=== PATIENT | female | born 1995 | race Caucasian/White ===

== ENCOUNTER 2017-06-18 15:31 | Emergency (ER) | payer BC, OTHER ==
[~2017-06-18] VITALS: Ht 165.1 cm; Wt 51.3 kg
[2017-06-18] MEDS ORDERED: SINGULAIR (15:59)
[2017-06-18] MEDS ORDERED: MOME13HF2 INH (15:59)
[2017-06-18] MEDS ORDERED: ESCI10TA PO (16:00)
[2017-06-18 16:21] LABS: *URINE HCG, QUAL NEGATIVE (NEGATIVE)
[2017-06-18 16:22] LABS: *BILIRUBIN,URIN NEGATIVE (NEGATIVE); *BLOOD, URINE NEGATIVE (NEGATIVE); *CLARITY,URINE CLEAR (CLEAR); *COLOR,URINE YELLOW (YELLOW); *KETONES,URINE NEGATIVE (NEGATIVE); *PROTEIN,URINE NEGATIVE (NEGATIVE); *UROBILINOGEN,URINE 0.2 E.U./dl (NORMAL); LEUKOCYTE ESTERASE ,URINE TRACE (NEGATIVE); NITRITE, URINE NEGATIVE (NEGATIVE); PH,URINE 7.5 (5.0-8.0); UGLUCOSE NEGATIVE (NEGATIVE)
[2017-06-18 16:28] LABS: BACTERIA,URINE FEW /HPF (NONE SEEN); RBC,URINE 0-3 /HPF (0-3); SQUAMOUS EPITHELIAL CELL,UR FEW /HPF (NONE SEEN)
--- NOTE | 2017-06-18 17:19 | NUR ---
Patient discharged to home in stable conditon. Written and verbal after care instructions given. Patient verbalizes understanding of instructions.pt walks in steady gait.
== END 2017-06-18 16:54 | disposition home or self-care (01) ==
LOC: ER 15:33
DX: N83.202 Unspecified ovarian cyst, left side (principal)
CPT/HCPCS: 84703; A4663